=== PATIENT | female | born 1985 | race Two or more races ===

== ENCOUNTER 2020-08-25 01:44 | Outpatient (CLI) | payer MEDICAID, SELFPAY ==
[2020-08-25 21:19] LABS: SARS-CoV-2 RNA PCR Negative
== END 2020-08-25 01:45 | disposition home or self-care (01) ==
LOC: ANHCOVIDDT 01:45
PROVIDERS: Visit Provider Obstetrics & Gynecology
DX: Z01.812 Encounter for preprocedural laboratory examination (principal); Z20.828 Contact with and (suspected) exposure to other viral communicable diseases
CPT/HCPCS: 87635; C9803; U0003

== ENCOUNTER 2020-08-29 01:31 | Day surgery (SDC) | payer MEDICAID, SELFPAY ==
[2020-08-27 10:33] VITALS: BMI 25.3
--- NOTE | 2020-08-28 12:47 | P.PNAN_ITS ---
Anes - Initial Pre Proc Eval Procedure: Operation Date: 08/29/20 10:45 Proposed Procedures p Suction Dilatation and Curettage - Jesenia Benavidez MD Date/Time: 08/28/20 12:47 Surgeon: Jesenia Benavidez MD Pre Op Diagnosis: missed AB Patient Data Age: 35 Gender: F Height: 1.6 m Weight: 64.9 kg Allergies Allergy/AdvReac Type Severity Reaction Status Date / Time No Known Allergies Allergy Unverified 08/29/20 09:10 Home Medications Medication Instructions Recorded Confirmed Type No Home Medications 08/27/20 08/29/20 History Patient hx anesthesia problems: none Family hx anesthesia problems: none PMFSH Social History Social History Smoking status: Never smoker Living arrangements: with family Spiritual care concerns: No Anes - Eval Final PreProcedure Day of Procedure 08/28/20 12:47 Patient weight: overweight Heart: regular rate and rhythm Lungs: clear to auscultation and normal air movement Airway: Mallampati scale class 1 Neurological: alert and oriented Last oral intake: >/= 8 hours ASA classification: I Emergent: no Anesthetic plan: proceed Anesthesia type and monitoring: general GIVS and standard monitoring Informed Consent: The patient's anesthetic plan and its attendant risks and benefits were discussed with the patient/family/POA. Questions were solicited an d answers provided to the satisfaction of the patient/family/POA.
[2020-08-29] VITALS (7 sets, daily range): BP systolic 109–130; BP diastolic 62–73; PULSE 61–74; RESP 14–16; TEMP 36.6; O2SAT 97–100
[2020-08-29] MEDS: ACETAMINOPHEN 500 MG TABLET 1000 MG PO (09:13)
[2020-08-29] MEDS: LACTATED RINGERS 1,000 ML 30 ML IV CONT (09:34)
--- NOTE | 2020-08-29 12:07 | WPDHPUPDATE1 ---
History and Physical Update Update Date/Time: 08/29/20 12:07 History and Physical has been reviewed, including an updated exam of the patient. There are NO changes in the patient's condition. Risks, benefits, and alternatives have been discussed and questions answered. Patient agrees to proceed with procedure.
--- NOTE | 2020-08-29 13:07 | SUR.OPER ---
waiting for Doxycycline 200mg/Dr Benavidez aware will be given in outpatient. Mixing per Pharmacy.
--- NOTE | 2020-08-29 15:16 | SUR.PREOP ---
1000 report given to [facility] rn. pt aware delay in surgery,spouse remains at side.
--- NOTE | 2020-08-29 16:20 | SUR.PHASEII ---
1345 Dr Benavidez has ordered doxycycline for this pt, the medication will take 2 hours to infuse so pt will remain in op recovery until medication is fully infused. pt is receiving this antibiotic to curb any infection that might occur from the procedure that was performed. Patient is aware of this and is agrreable to remain until the medication is infused, spouse is also aware of the situation and fully understands and aslo is agreeable to this.
--- NOTE | 2020-08-30 09:01 | P.OP_ITS ---
Procedure Note - Detailed Date of procedure: 08/30/20 Pre-op diagnosis: missed AB Post-op diagnosis: same Procedure performed: Suction D&C Description of procedure: The patient was taken the operating room. She has prepped and draped in dorsal lithotomy position after induction of mac anesthesia. A speculum was placed in the vagina. The cervix was grasped with a tenaculum. The cervix was injected at 3 and 9:00 a.m. with 1% lidocaine. The cervix was dilated up to 8 mm using Niño dilators. An 8 curved plastic suction curette was then applied to the intrauterine cavity. All of the surfaces in the intrauterine cavity were curettage under VAC. A sharp medium-size curette was then used to curettage all the surfaces to confirmed the removal of all the products conception. When all surfaces for bleed to be clean the curette was r emoved. The suction curette was then reapplied to remove all the debris. The procedure was terminated. The tenaculum was removed. The speculum was removed. The patient tolerated the procedure well. She was taken recovery room in stable condition. Anesthesia: MAC Surgeon: Jesenia Benavidez MD Estimated blood loss (mL): 25 Drains: No Packing: No Pathology: yes Complications: No immediate complications Condition: stable Disposition: PACU Findings: Normal vulva vagina and cervix. The moderate amounts of products conception. 8 cm uterus.
== END 2020-08-29 16:20 | disposition home or self-care (01) ==
PROVIDERS: Visit Provider Obstetrics & Gynecology
PROC: (CPT 59820; principal; 2020-08-29 10:45)
DX: O02.1 Missed abortion (principal)
CPT/HCPCS: 59820; 36415; 85461; 88305; A9270; J2250; J2704; J3010; J7060; J7120

== ENCOUNTER 2021-05-01 10:31 | Emergency (ER) | payer OTHER, SELFPAY ==
[2021-05-01 10:37] VITALS: BP 124/62; PULSE 75; RESP 16; TEMP 36.9; O2SAT 100
--- NOTE | 2021-05-01 10:56 | ED.GENADULT ---
HPI - General Adult General Chief complaint: Eye Problems Stated complaint: Possible right Eye infection Time Seen by Provider: 05/01/21 10:43 Source: patient and RN notes reviewed Mode of arrival: ambulatory Limitations: no limitations History of Present Illness HPI narrative: 35-year-old Middle-Eastern female presents with complaints of right eye redness, irritation, some burning, and itching for 1 day. ?Sahar reports increasing irritation to the right eye throughout the night, eye was slightly libra on 04/30/21 and worse today. ?OTC eye drops without relief. Slightly matted. ?No pain. ?No copious drainage. ?Exacerbating factors are eye opening and light. ?No relieving factors. ?Does not wear glasses or contact lenses. ?No blurred vision, double vision, sensation of foreign body, or pain of eye with movement. LMP 1 week ago. Remains active. The patient reports she has not been diagnosed with COVID-19. ?The patient reports she is not waiting for the results of a COVID-19 lab test. The patient reports she does not have fever, chills, weakness, fatigue, or myalgia. ?The patient reports he does not have a new or worsening cough or shortness of breath. ?The patient reports he does not have any rhinorrhea, congestion, loss of taste or smell, sore throat, and diarrhea. ?Denies recent traveling. ?Denies concerns for COVID-19 or exposures. ?At this time, the patient is not suspected of having COVID-19. Some parts of this dictation were generated by voice recognition software and may contain typographical and/or grammatical inaccuracies. Related Data Allergies Allergy/AdvReac Type Severity Reaction Status Date / Time No Known Allergies Allergy Verified 05/01/21 10:52 Review of Systems Review of Systems: Narrative: CONSTITUTIONAL: Denies fever, chills, sweats. EYES: Denies visual changes. Complains of RT eye redness, itching, and irritation. ENT: Denies rhinorrhea, congestion, sore throat, otalgia. CARDIOVASCULAR: Denies chest pain, palpitations, edema. RESPIRATORY: Denies dyspnea, wheezing, cough. GASTROINTESTINAL: Denies abdominal pain, nausea, vomiting, diarrhea. GENITOURINARY: Denies dysuria, hematuria, abnormal discharge. SKIN: Denies rash or itching. MUSCULOSKELETAL: Denies acute back pain, joint pain, or myalgia. NEUROLOGIC: Denies numbness or focal weakness. PSYCHIATRIC: Denies anxiety or depression. All systems reviewed & are unremarkable except as noted in HPI and below. [facility] Past Medical History Medical History (Updated 05/02/21 @ 00:01 by Javier Roland) Miscarriage 08/29/2020 Surgical History Surgical History (Updated 05/01/21 @ 11:01 by RORY Pichardo) History of dilation and curettage Family History Family History (Updated 05/01/21 @ 11:01 by RORY Pichardo) Father Alive and well Mother Alive and well Social History Social History (Updated 05/01/21 @ 11:02 by RORY Pichardo) Smoking status: Never smoker Tobacco type: cigarettes Second hand tobacco smoke exposure: No Alcohol intake: current Substance use: never Substance use type: does not use Living arrangements: with family Occupation/Education: occupation Additional occupation/education comments: working from home Gender identity (if verbalized by the patient): Female Sexual Orientation (if Verbalized by the Patient): Straight or Heterosexual Spiritual care concerns: No Comments At time of signature, agree with the nurse past medical, surgical, social, and family history. There is no relevant family history pertinent to the presenting complaint. Exam Narrative: Exam Narrative: GENERAL: This is a well-nourished, well-developed patient, in no apparent distress. HEAD: normocephalic, atraumatic. EYES: PERRL. Sclera clear/white to LT eye only. RT eye sclera libra and clear, no swelling, no tenderness on palpation. Vision is grossly intact. No visible or palpable Hordeolum present, no drainable
== END 2021-05-01 11:13 | disposition home or self-care (01) ==
PROVIDERS: Emergency Provider Nurse Practitioner Family
DX: H10.32 Unspecified acute conjunctivitis, left eye (principal)
CPT/HCPCS: 99213; G0463

== ENCOUNTER 2022-09-23 13:04 | Observation (INO) | payer OTHER, SELFPAY ==
[2022-09-23] VITALS (9 sets, daily range): BP systolic 115–130; BP diastolic 50–70; PULSE 68–86; O2SAT 99; BMI 27.2
--- NOTE | 2022-09-23 11:38 | OBADM ---
This patient, Dagmar Blanchard, admitted to the OB room OB Post 117 for observation. Patient/family oriented to hospital policies and general routines including ID bracelet, bed and alarms, visiting hours, pain management, procedures, bathroom and other care routines, personal items, smoking policy, room service/diet, and visiting hours. Patient/Family are encouraged to report perceived risks to care and to ask questions if they do not understand what they are told or what they should do.
--- NOTE | 2022-09-23 13:00 | PC.NURSE ---
Called Bari Willis CNM with pt status. Informed of pt complaining of dizziness, blurred vision, getting hot, and numbness and pain in left arm. Pt also states that she has a headache in the back of her head. Orders received.
[2022-09-23 13:33] LABS: Basophils Percent Auto 0.2 % (0.2-1.2); Hematocrit 33.6 % (37.0-47.0); Immature Granulocyte Absolute 0.15 K/mm3 (0.00-0.031); Immature Granulocyte Percent A 1.2 % (0-0.5); Lymphocytes Absolute Auto 1.64 K/mm3 (0.9-3.2); Lymphocytes Percent Auto 13.6 % (18.3-44.2); Mean Corpuscular HGB Conc 32.7 g/dl (32-36); Mean Corpuscular Hemoglobin 27.3 pg (26-34); Mean Corpuscular Volume 83.4 fl (80-100); Monocytes Absolute Auto 0.6 K/mm3 (0.1-0.6); Neutrophils Absolute Auto 9.6 K/mm3 (1.3-6.7); Platelet Count Result 216 k/mm3 (150-375); Red Blood Count 4.03 M/mm3 (4.2-5.4)
[2022-09-23 13:45] LABS: Uric Acid 4.2 mg/dL (2.5-7.5)
[2022-09-23 13:48] LABS: Alanine Aminotransferase 18 U/L (6-35); Alkaline Phosphatase 83 U/L (38-126); Anion Gap 8 mmol/L (8-16); Aspartate Amino Transferase 23 U/L (14-36); Bilirubin,Total 0.5 mg/dL (0.2-1.3); Blood Urea Nitrogen 4 mg/dL (7-17); Calcium 9.1 mg/dL (8.4-10.2); Carbon Dioxide 24 mmol/L (22-30); Chloride 99 mmol/L (98-107); Estimated Glomerular Filt Rate > 60; Glucose 88 mg/dL (65-110); Potassium 3.7 mmol/L (3.4-5.0); Sodium 131 mmol/L (137-145)
--- NOTE | 2022-09-23 13:54 | PC.NURSE ---
Called Bari Willis CNM with lab results and pt update. Pt requesting to go home. States that she feels better after eating. May D/C home with increased periods of rest.
--- NOTE | 2022-09-25 08:25 | PM.OBTRLD ---
OB - Triage/Final Diagnosis Visit Information Date of evaluation: 09/23/22 Reason for evaluation: threatened labor Comments/Additional reasons for admission: I have assessed the risk for this patient, Dagmar Blanchard, and determined that she would benefit from observation care. Evaluation Laboratory results: Laboratory Tests 09/23/22 09/23/22 09/23/22 13:20 13:20 13:20 WBC 12.0 H RBC 4.03 L Hgb 11.0 L Hct 33.6 L MCV 83.4 MCH 27.3 MCHC 32.7 RDW 14.0 Plt Count 216 MPV 10.0 Immature Gran % (Auto) 1.2 H Neut % (Auto) 80.0 H Lymph % (Auto) 13.6 L [place] % (Auto) 5.0 Eos % (Auto) 0.0 Baso % (Auto) 0.2 Lymph # (Auto) 1.64 [place] # (Auto) 0.6 Eos # (Auto) 0.0 Baso # (Auto) 0.0 Abs Immat Gran (auto) 0.15 H Absolute Neuts (auto) 9.6 H Absolute Nucleated RBC 0.0 Nucleated RBC % 0.0 Sodium 131 L Potassium 3.7 Chloride 99 Carbon Dioxide 24 Anion Gap 8 BUN 4 L Creatinine 0.30 L Estim Creat Clear Calc Not Reportable Estimated GFR > 60 Glucose 88 Uric Acid 4.2 Calcium 9.1 Total Bilirubin 0.5 AST 23 ALT 18 Alkaline Phosphatase 83 Total Protein 7.0 Albumin 4.0
== END 2022-09-23 14:05 | disposition home or self-care (01) ==
PROVIDERS: Admitting Provider Obstetrics & Gynecology; PCP Advanced Practice Midwife; Visit Provider Obstetrics & Gynecology
DX: O47.03 False labor before 37 completed weeks of gestation, third trimester (principal); Z3A.36 36 weeks gestation of pregnancy
CPT/HCPCS: 36415; 80053; 84550; 85025; G0378; G0379

== ENCOUNTER 2023-09-20 11:55 | Emergency (ER) | payer OTHER, SELFPAY ==
[2023-09-20 12:00] VITALS: BP 120/81; PULSE 70; RESP 16; TEMP 36.4; O2SAT 98
--- NOTE | 2023-09-20 12:12 | ED.EAR ---
HPI - Ear Problem General Chief complaint: Ear Stated complaint: Right Ear Pain History of Present Illness HPI Narrative: Patient presents with right ear pain. Patient states little bit of drainage from the ear and pain to the outside ear. No hearing loss no injury ear. Related Data Allergies Allergy/AdvReac Type Severity Reaction Status Date / Time No Known Allergies Allergy Verified 09/20/23 12:04 Review of Systems Review of Systems: CONSTITUTIONAL: Denies chills, or sweats. Reports fever and generalized body aches EYES: Denies visual changes, redness, or discharge. ENT: Denies otalgia. Reports nasal congestion runny nose and sore throat CARDIOVASCULAR: Denies chest pain, palpitations, or edema. RESPIRATORY: Denies dyspnea. Reports occasional cough GASTROINTESTINAL: Denies abdominal pain, nausea, vomiting, or diarrhea. GENITOURINARY: Denies dysuria or hematuria. SKIN: Denies rash or itching. MUSCULOSKELETAL: Denies back pain, joint pain, or myalgia. Reports generalized body aches NEUROLOGIC: Denies headache, numbness, or weakness. PSYCHIATRIC: Denies anxiety or depression. [facility] Past Medical History Medical History (Updated 09/20/23 @ 12:15 by RORY Hunt) Miscarriage 08/29/2020 Surgical History Surgical History (Updated 05/01/21 @ 11:01 by RORY Pichardo) History of dilation and curettage Family History Family History (Updated 05/01/21 @ 11:01 by RORY Pichardo) Father Alive and well Mother Alive and well Social History Social History (Updated 05/01/21 @ 11:02 by RORY Pichardo) Smoking status: Never smoker Tobacco type: cigarettes Second hand tobacco smoke exposure: No Alcohol intake: current Substance use: never Substance use type: does not use Living arrangements: with family Occupation/Education: occupation Additional occupation/education comments: working from home Gender identity (if verbalized by the patient): Female Sexual Orientation (if Verbalized by the Patient): Straight or Heterosexual Spiritual care concerns: No Comments At time of signature, agree with nursing past medical, surgical, social and family history. There is no relevant family history pertinent to the presenting complaint Exam Narrative: The patient is a well-developed, well-nourished in no acute distress. SKIN: Skin is warm and dry without erythema, swelling or exudate. There is good turgor. No tenting. HEAD: Atraumatic. Normocephalic. No temporal or scalp tenderness. EYES: Moist and bright. Sclera and conjunctivae normal. No discharge. PERRLA. Extraocular motions intact. Gross visual acuity intact. EARS: Pinna is normal shape and contour. Clear external auditory canals. TM pearly layne with good cone of light, no erythema or suppuration. Bilateral cerumen noted no gross hearing deficit. NOSE: pink, moist mucosa with good air movement. Clear rhinorrhea without nasal flaring. Septum midline. Mouth: moist mucous membranes. THROAT; mild erythema noted to posterior oropharynx with moderate postnasal drainage. Without exudate or ulceration.. Uvula midline. Normal movement of soft palate. NECK: Supple and nontender with full range of motion without discomfort. No meningeal signs. LUNGS: Equal and bilateral breath sounds without wheezes, rales or rhonchi. CHEST: The chest wall is without retractions or use of accessory muscles. HEART: Has a regular rate and rhythm without murmur, gallops, click or rub. ABDOMEN: Soft, nontender with positive active bowel sounds. No rebound tenderness. EXTREMITIES: Without cyanosis, clubbing or edema. Equal 2+ distal pulses and 2 second capillary refill noted. NEUROLOGIC: alert, active, . The patient moves all extremities with normal muscle strength. Normal muscle tone is noted. Normal coordination is noted. NO focal neurological findings noted. HENMT: Ears: Abnormal EAC present erythema on the right and EAC tenderness C
== END 2023-09-20 12:21 | disposition home or self-care (01) ==
PROVIDERS: Emergency Provider Nurse Practitioner Family
DX: H60.91 Unspecified otitis externa, right ear (principal)
CPT/HCPCS: 99213; G0463